=== PATIENT | female | born 1935 | race Two or more races ===

== ENCOUNTER → 2016-08-28 | Outpatient (CLI) | payer OTHER ==
--- NOTE | 2016-08-29 10:21 | Diagnostic Imaging Report ---
Indications: Lung nodule, followup Technique: Continuous helical CT imaging of the thorax and upper abdomen was performed with automatic exposure control on a Siemens sensation [address] scanner. Axial images were reconstructed at 5 mm slice thickness and interval. Coronal images were reconstructed at 5 mm slice thickness. No IV contrast was administered secondary to patient's order, no contraindications listed. CTDI volume(s): 19 mGy Total DLP: 613 mGy-cm Findings: Comparison: None. To date, no prior outside examinations haven't been made available for comparison. Circumscribed, noncalcified soft tissue nodule is present in the lateral periphery of the lateral segment of the middle lobe of the right lung, 9 mm maximum diameter. Pleural-based irregularly increased interstitial markings, focal linear and patchy consolidative opacities are present in the adjacent lung parenchyma. Similar less prominent parenchymal densities are present in the basal aspect lingula. Additional irregular pleural-based linear densities are present in both lung apices and lower lobes. No significant pleural abnormality demonstrated. Heart normal size. Scattered arterial mural calcifications. Vascular patency indeterminate. Thoracic aorta nonaneurysmal. No obvious pericardial abnormality. No obvious mediastinal or hilar enlarged lymph nodes, other abnormal mass or fluid collection. Chest wall soft tissues nonfocal. Imaged upper abdominal anatomy unremarkable. Multilevel disc space narrowing with marginal osteophyte formation, vacuum phenomenon and thoracic spine. IMPRESSION: 9 mm nodule right middle lobe--inflammatory versus neoplastic. No prior outside examinations available for comparison, so stability indeterminate. Should prior outside examination made available for comparison, an addendum can be dictated at that time. Pulmonary biapical and bibasal subsegmental atelectasis versus scarring Arteriosclerosis Degenerative spondylosis
--- NOTE | 2016-08-31 11:13 | Diagnostic Imaging Report ---
Indication: Palpable left breast lump felt by physician. Technique: Craniocaudal and mediolateral oblique views. Left breast spot compression views. Focused ultrasound left breast Comparison: Outside digital images dated 08/31/2015 Findings: The patient was unsure where physician felt a lump, questionably in the left lower outer quadrant. Spot compression views of this area were obtained. The breasts are heterogeneously dense, which may obscure small masses. No parenchymal asymmetry nor architectural distortion. No dominant masses nor suspicious clustered microcalcifications. There are benign calcifications bilaterally. No skin thickening nor nipple retraction. Ultrasound demonstrates no cystic or solid abnormality. Spot compression views reveal no evidence of mass lesion. There is no significant interim change from the prior mammogram Impression: No mammographic evidence of malignancy. Specifically, no mammographic or sonographic abnormalities to correspond to the reported palpable abnormality. Recommend routine interval mammographic followup Note, however, that negative mammographic and sonographic findings do not completely rule out malignancy in the setting of a suspicious palpable abnormality, and clinical findings should take precedence BI-RADS category 2-benign Breast density BI-RADS type C
== END | disposition home or self-care (01) ==
LOC: RAD 13:34
DX: R91.1 Solitary pulmonary nodule (principal); I70.90 Unspecified atherosclerosis; M47.9 Spondylosis, unspecified; N63 Unspecified lump in breast
CPT/HCPCS: 71250; 77066

== ENCOUNTER 2016-10-30 21:46 | Emergency (ER) | payer OTHER ==
[~2016-10-30] VITALS: Ht 162.6 cm; Wt 72.6 kg
[2016-10-30] MEDS ORDERED: OMEPRAZOLE10 M1 ORAL (21:58)
[2016-10-30] MEDS ORDERED: ASPIR 8181 MG ORAL (21:58)
[2016-10-30] MEDS ORDERED: VITAMIN D250000 UNI1 ORAL (21:58)
[2016-10-30] MEDS ORDERED: KEFLEX500 MG ORAL (22:36)
[2016-10-30] MEDS ORDERED: Cephalexin 500mg cap ORAL ONE (22:45)
[2016-10-30 23:00] VITALS: BP 142/74
[2016-10-30 23:03] VITALS: BP 142/74
--- NOTE | 2016-10-30 23:04 | Emergency Room Report ---
History of Present Illness General Chief Complaint: Lower Extremity Injury Source: Patient Present Illness HPI [id number] with 2 days of area of redness and warmth to anterior left mejia. Possibly scraped it on something vs insect bites outside yesterday. Denies fever/chills, calf pain, swelling. Had cellulitis before. Denies self or family history of DVT/PE. Denies DM history. Feels well otherwise. Allergies: Coded Allergies: CODEINE (Verified Allergy, Unknown, 10/30/16) Patient History Past Medical History: see triage record, old chart reviewed Past Surgical History: none Pertinent Family History: none Social History: Denies: alcohol use, drug use, smoking Last Menstrual Period: NONE Now: No Immunizations: UTD Reviewed Nursing Documentation: PMH: Agreed, PSxH: Agreed Review of Systems All Other Systems: negative except mentioned in HPI Physical Exam Vital Signs Date Time Temp Pulse Resp B/P Pulse Ox O2 Delivery O2 Flow Rate FiO2 10/30/16 21:50 98.2 72 18 149/79 99 Room Air Sp02 EP Interpretation: reviewed, normal General Appearance: normal inspection, well appearing, no apparent distress, alert, GCS 15, non-toxic Head: normocephalic, atraumatic Eyes: bilateral eye EOMI, bilateral eye PERRL ENT: normal ENT inspection, hearing grossly normal, normal voice Neck: normal inspection, full range of motion, supple, no bony tend Respiratory: normal inspection, lungs clear, normal breath sounds, no respiratory distress, no retraction, no wheezing Cardiovascular #1: regular rate, rhythm, no edema Gastrointestinal: normal inspection, normal bowel sounds, non tender, soft, no guarding, no hernia Genitourinary: no CVA tenderness Musculoskeletal: normal inspection, back normal, normal range of motion, Trinidad' s Sign negative Neurologic: normal inspection, alert, oriented x3, responsive, wind technician III-XII nml as tested, speech normal Psychiatric: normal inspection, judgement/insight normal, mood/affect normal Skin: normal inspection, other - Left anterior mejia: 4cm area of erythema, warmth. No calf ttp Medical Decision Making Diagnostic Impression: Primary Impression: Cellulitis Qualified Codes: L03.116 - Cellulitis of left lower limb ER Course Left anterior mejia cellulitis No abscess VSS. Afebrile. No systemic signs or symptoms Rx Keflex, initial dose given in ED No comordbidities warranting additional Abx DC home Last Vital Signs Date Time Temp Pulse Resp B/P Pulse Ox O2 Delivery O2 Flow Rate FiO2 10/30/16 21:50 98.2 72 18 149/79 99 Room Air Status: improved Disposition: HOME, SELF-CARE Condition: Improved Scripts Cephalexin* (KEFLEX*) 500 Mg Capsule 500 MG ORAL Q6H for 7 Days, #27 CAP 0 Refills Prov: ZACKERY ADKINS M.D. 10/30/16 Referrals: NON PHYSICIAN (PCP) Patient Instructions: Cellulitis, [id number] Additional Instructions: - Take ALL antibiotics - Keflex - until finished - Follow up with your primary care doctor in 1 week ZACKERY ADKINS M.D. October 30, 2016 23:04
== END 2016-10-30 23:05 | disposition home or self-care (01) ==
LOC: EMR 22:27
DX: L03.116 Cellulitis of left lower limb (principal); Z88.6 Allergy status to analgesic agent
CPT/HCPCS: 99283

== ENCOUNTER 2017-04-16 16:33 | Outpatient (CLI) | payer OTHER ==
[~2017-04-16 16:33] MED LIST: ASPIR 8181 MG ORAL; KEFLEX500 MG ORAL; OMEPRAZOLE10 M1 ORAL; VITAMIN D250000 UNI1 ORAL
--- NOTE | 2017-04-17 10:10 | Diagnostic Imaging Report ---
Clinical Indication: Cough, history right lower lobe nodule on prior CT scan, needing short interval followup Technique: Spiral acquisitions obtained through the chest. No IV contrast utilized, per referring physician request. Multiplanar reconstructions generated. Total dose length product 627 mGycm. CTDIvol(s) 18 mGy. Dose reduction achieved using automated exposure control Comparison: 08/28/2016 Findings:Right peripheral middle lobe nodule is stable or perhaps slightly decreased in size, currently measuring 7 mm maximal dimension, previously 8-9 mm. A tiny cystic space is seen in the posterior right middle lobe. Some reticular opacities are seen in the anterior inferior peripheral right middle lobe. Linear interstitial opacities and scarring are again demonstrated at the left lung base. No other nodules or masses. No infiltrates, effusions, or congestion demonstrated. Some parenchymal scarring is seen at the lung apices bilaterally. The heart size is normal. No pericardial effusion. There are coronary artery calcifications. Mildly ectatic ascending thoracic aorta, 4 cm in diameter. No mediastinal hilar mass or adenopathy. The included thyroid is unremarkable. No axillary or chest wall mass or adenopathy. Included upper abdominal anatomy demonstrate cholecystectomy clips. The pancreas is somewhat atrophic. There is questionably a small calcified splenic hilar aneurysm. There are degenerative changes of the thoracic spine. Impression: 7 mm diameter right middle lobe nodule, stable or perhaps slightly smaller than on previous study of 08/28/2016. Lack of interim growth suggests but does not confirm benignity. If patient is at low risk for lung carcinoma, followup CT in 18-24 months be considered. If patient is at high risk for lung carcinoma, followup CT in 18-24 months is strongly recommended, per the Fleischner Society criteria Tiny right lung cystic space again demonstrated. Other stable findings as described. Incidental findings as noted, including evidence of prior cholecystectomy, questionable small calcified splenic hilar aneurysm, degenerative thoracic spondylosis The CT scanner at [facility] is accredited by the [employer] and the scans are performed using protocols designed to limit radiation exposure to as low as reasonably achievable to attain images of sufficient resolution adequate for diagnostic evaluation.
== END 2017-04-16 18:33 | disposition home or self-care (01) ==
LOC: RAD 16:33
DX: R07.9 Chest pain, unspecified (principal)
CPT/HCPCS: 71250

== ENCOUNTER 2019-02-16 16:31 | Emergency (ER) | payer OTHER ==
[~2019-02-16] VITALS: Ht 154.9 cm; Wt 73.9 kg
[2019-02-16 16:45] VITALS: BP 140/84
--- NOTE | 2019-02-16 16:45 | NUR ---
ED Nurse Note: p walked in to ED c/o insect bite to left facial and left elbow with swelling and itchiness. pt is alert x4. VSS
[2019-02-16] MEDS ORDERED: Hydrocortisone 1% Oint 30gm TOPIC ONE (17:00)
[2019-02-16] MEDS ORDERED: DiphenhydrAMINE & Zinc 28g Cream TOPIC ONE (17:00)
[2019-02-16] MEDS ORDERED: CEPHALEXIN500 M1 ORAL (17:01)
--- NOTE | 2019-02-16 17:01 | Emergency Room Report ---
History of Present Illness General Chief Complaint: Skin Rash/Abscess Source: Patient Present Illness HPI 84-year-old female presents with itchy bite to the left cheek, and left elbow, no fever no chills, no aggravating or alleviating factors, patient states that the lesions are very itchy severity is moderate, constant she has no other symptoms. Patient presents for evaluation Allergies: Coded Allergies: CODEINE (Verified Allergy, Unknown, 10/30/16) Patient History Past Medical History: see triage record Last Menstrual Period: na Reviewed Nursing Documentation: PMH: Agreed; PSxH: Agreed Nursing Documentation-PMH Past Medical History: No History, Except For Review of Systems All Other Systems: negative except mentioned in HPI Physical Exam Vital Signs Date Time Temp Pulse Resp B/P (MAP) Pulse Ox O2 Delivery O2 Flow Rate FiO2 02/16/19 16:38 97.9 62 20 146/85 (105) 98 Room Air Sp02 EP Interpretation: reviewed, normal General Appearance: well appearing, no apparent distress, alert Head: normocephalic, atraumatic Eyes: bilateral eye PERRL, bilateral eye EOMI ENT: uvula midline, moist mucus membranes Neck: supple, thyroid normal, supple/symm/no masses Respiratory: no respiratory distress, no retraction, no accessory muscle use Musculoskeletal: normal inspection Neurologic: alert, oriented x3 Psychiatric: mood/affect normal Skin: rash - Left urticarial rash on left cheek, and left elbow, warm/dry Medical Decision Making Diagnostic Impression: Primary Impression: Insect bite Qualified Codes: W57.XXXA - Bitten or stung by nonvenomous insect and other nonvenomous arthropods, initial encounter Additional Impression: Cellulitis Qualified Codes: L03.211 - Cellulitis of face ER Course With insect bite to left face, left elbow, will provide patient with Benadryl and cortisone cream in the ED, will provide patient with antibiotic to prevent superinfection. Last Vital Signs Date Time Temp Pulse Resp B/P (MAP) Pulse Ox O2 Delivery O2 Flow Rate FiO2 02/16/19 16:38 97.9 62 20 146/85 (105) 98 Room Air Disposition: HOME, SELF-CARE Condition: Stable Scripts Cephalexin* (CEPHALEXIN*) 500 Mg Tablet 500 MG ORAL EVERY 6 HOURS, #40 CAP Prov: Rodolfo Ramachandran MD 9/15/19 Referrals: [facility] Patient Instructions: Cellulitis, [id number], Insect Bite, [id number], Rash Additional Instructions: The patient was provided with discharge instructions, notified to follow-up with a primary care doctor and or specialist in the next 24-48 hours, and to return to the ED if they have worsening of their symptoms. Please note that this report is being documented using [employer] technology. This can lead to erroneous entry secondary to incorrect interpretation by the dictating instrument. Rodolfo Ramachandran MD Feb 16, 2019 17:01
[2019-02-16 17:05] VITALS: BP 148/86
--- NOTE | 2019-02-16 17:05 | NUR ---
ER DISCHARGE NOTE: Patient is cleared to be discharged per ERMD, pt is aox4, on room air, with stable vital signs. pt was given dc and prescription instructions, pt was able to verbalize understanding, pt id band removed without complications. pt is able to ambulate with steady gait. pt took all belongings.
== END 2019-02-16 17:05 | disposition home or self-care (01) ==
LOC: EMR 17:00
DX: S00.86XA Insect bite (nonvenomous) of other part of head, initial encounter (principal); L03.211 Cellulitis of face; W57.XXXA Bitten or stung by nonvenomous insect and other nonvenomous arthropods, initial encounter; Y92.9 Unspecified place or not applicable; Z88.6 Allergy status to analgesic agent
CPT/HCPCS: 99282